=== PATIENT | male | born 1980 | race Caucasian/White ===

== ENCOUNTER 2018-04-26 11:03 | Emergency (ER) | payer OTHER ==
[~2018-04-26] VITALS: Ht 182.9 cm; Wt 88.9 kg
[2018-04-26 11:52] LABS: BILIRUBIN,URINE NEGATIVE (NEGATIVE); CLARITY,URINE CLEAR; COLOR,URINE YELLOW; GLUCOSE, URINE (UA) NEGATIVE (NEGATIVE); KETONES,URINE 1+ (NEGATIVE); LEUKOCYTE ESTERASE ,URINE 1+ (NEGATIVE); NITRITE,URINE NEGATIVE (NEGATIVE); PH,URINE 6 (5-9); PROTEIN,URINE 2+ (NEGATIVE); UROBILINOGEN,URINE 1 MG/DL (NORMAL)
[2018-04-26 11:59] LABS: BACTERIA,URINE NEGATIVE /HPF; SQUAMOUS EPITHELIAL CELL,UR 0-2 /HPF
[2018-04-26] MEDS ORDERED: HYDR-4226 PO (12:10)
--- NOTE | 2018-04-26 12:10 | ED Back Pain ---
General Chief Complaint: -Male Stated Complaint: LOWER BACK PAIN/POSS KIDNEY STONES Nursing Triage Note: Patient states he has frequent UTIs and has had bilat flank pain and chills for about 4 days. He is concerned about a possible stone. Nursing Sepsis Screen: No Definite Risk Source of Information: Patient Exam Limitations: No Limitations History of Present Illness Date Seen by Provider: Apr 26, 2018 Time Seen by Provider: 12:05 Initial Comments To ER with reports of suspected urinary tract infection. He has some chronic issues with urinary symptoms including frequency. He has bilateral paraspinous back pain from the low back to the upper back. This is typical of when he gets a urinary tract infection. He denies nausea vomiting fevers or chills. Location: Lumbar Spine Timing/Duration: 2-3 Days Severity: Moderate Pain/Injury Location: Back Radiation: Other Method of Injury: Unknown Associated Symptoms: No fever, No numbness in legs/feet, No tingling in legs/ feet, No sensory/motor loss; lower back pain; No loss of bladder control, No loss of bowel control Allergies and Home Medications Allergies Coded Allergies: No Known Allergies (Verified Allergy, Unknown, 12/10/05) Home Medications Hydrocodone/Acetaminophen 1 Each Tablet, 1 EACH PO Q6H PRN for PAIN-MODERATE Prescribed by: EZEQUIEL SANTIZO on 04/26/18 1210 Sulfamethoxazole/Trimethoprim 1 Each Tablet, 1 EACH PO BID Prescribed by: EZEQUIEL SANTIZO on 04/26/18 1440 Patient Home Medication List Home Medication List Reviewed: Yes Review of Systems Constitutional: see HPI EENTM: see HPI Respiratory: no symptoms reported Cardiovascular: no symptoms reported Genitourinary: no symptoms reported Musculoskeletal: no symptoms reported, see HPI, back pain Skin: no symptoms reported Psychiatric/Neurological: No Symptoms Reported Past Fjgjjsq-Xyjwok-Aqvrhn Hx Patient Social History Recent Foreign Travel: No Contact w/Someone Who Travel: No Recent Infectious Disease Expo: No Past Medical History Reproductive Disorders: No Physical Exam Vital Signs Vital Signs - First Documented 04/26/18 11:40 Temp 97.9 Pulse 113 Resp 20 B/P (MAP) 156/110 (125) Pulse Ox 97 Capillary Refill : Less Than 3 Seconds Height, Weight, BMI Height: 6'0" Weight: 196lbs. 0oz. 88.835035ds; BMI Method:Stated General Appearance: No Apparent Distress, WD/WN HEENT: PERRL/EOMI Respiratory: No Accessory Muscle Use, No Respiratory Distress Gastrointestinal: Normal Bowel Sounds, Non Tender, Soft Neurologic/Psychiatric: Alert, Oriented x3 Skin: Normal Color, Warm/Dry Progress/Results/Core Measures Results/Orders Lab Results Laboratory Tests Test 04/26/18 11:46 04/26/18 12:15 Range/Units Urine Color YELLOW Urine Clarity CLEAR Urine pH 6 5-9 Urine Specific [place] 1.015 L 1.016-1.022 Urine Protein 2+ H NEGATIVE Urine Glucose (UA) NEGATIVE NEGATIVE Urine Ketones 1+ H NEGATIVE Urine Nitrite NEGATIVE NEGATIVE Urine Bilirubin NEGATIVE NEGATIVE Urine Urobilinogen 1 NORMAL MG/DL Urine Leukocyte Esterase 1+ H NEGATIVE Urine RBC (Auto) NEGATIVE NEGATIVE Urine RBC NONE /HPF Urine WBC 2-5 /HPF Urine Squamous Epithelial Cells 0-2 /HPF Urine Crystals NONE /LPF Urine Bacteria NEGATIVE /HPF Urine Casts NONE /LPF Urine Mucus NEGATIVE /LPF Urine Culture Indicated NO White Blood Count 14.0 H 4.3-11.0 10^3/uL Red Blood Count 5.38 4.35-5.85 10^6/uL Hemoglobin 15.5 13.3-17.7 G/DL Hematocrit 44 40-54 % Mean Corpuscular Volume 82 80-99 FL Mean Corpuscular Hemoglobin 29 25-34 PG Mean Corpuscular Hemoglobin Concent 35 32-36 G/DL Red Cell Distribution Width 12.9 10.0-14.5 % Platelet Count 270 130-400 10^3/uL Mean Platelet Volume 9.6 7.4-10.4 FL Neutrophils (%) (Auto) 82 H 42-75 % Lymphocytes (%) (Auto) 10 L 12-44 % Monocytes (%) (Auto) 8 0-12 % Eosinophils (%) (Auto) 0 0-10 % Basophils (%) (Auto) 0 0-10 % Neutrophils # (Auto) 11.4 H 1.8-7.8 X 10^3 Lymphocytes # (Auto) 1.4 1.0-4.0 X 10^3 Monocytes # (Auto) 1.1 H 0.0-1.0 X 10^3 Eosinophils # (Auto) 0.0 0.0-0.3 10^3/uL Basophils # (Auto) 0.0 0.0-0.1 10^3/uL Sodium Level 138 135-145 MMOL/L Potassium Level 4.4 3.6-5.0 MMOL/L Chloride Level 101 98-107 MMOL/L Carbon Dioxide Level 25 21-32 MMOL/L Anion Gap 12 5-14 MMOL/L Blood Urea Nitrogen 15 7-18 MG/DL Creatinine 1.35 H 0.60-1.30 MG/DL Estimat Glomerular Filtration Rate 59 BUN/Creatinine Ratio 11 Glucose Level 104 70-105 MG/DL Calcium Level 10.0 8.5-10.1 MG/DL Corrected Calcium 8.5-10.1 MG/DL Total Bilirubin 3.4 H 0.1-1.0 MG/DL Aspartate Amino Transf (AST/SGOT) 11 5-34 U/L Alanine Aminotransferase (ALT/SGPT) 14 0-55 U/L Alkaline Phosphatase 90 40-136 U/L Total Protein 7.9 6.4-8.2 GM/DL Albumin 4.8 H 3.2-4.5 GM/DL My Orders Orders - EZEQUIEL SANTIZO APRN Ua Culture If Indicated (04/26/18 11:13) Cbc With Automated Diff (04/26/18 12:02) Comprehensive Metabolic Panel (04/26/18 12:02) Iv Heplock-Insert (Order) (04/26/18 12:02) Ketorolac Injection (Toradol Injection) (04/26/18 12:15) Chest Pa/Lat (2 View) (04/26/18 12:31) Ct Abd/Pelv W (Appendicitis) (04/26/18 12:31) Ns Iv 1000 Ml (Sodium Chloride 0.9%) (04/26/18 12:45) Iohexol Injection (Omnipaque 350 Mg/Ml 1 (04/26/18 14:00) Contrast Received (Contrast Received) (04/26/18 14:00) Ns (Ivpb) (Sodium Chloride 0.9% Ivpb Bag (04/26/18 14:00) Medications Given in ED Current Medications Medications Dose Ordered Sig/Blair Route Start Time Stop Time Status Last Admin Dose Admin Ketorolac Tromethamine 15 mg ONCE ONCE IVP 04/26/18 12:15 04/26/18 12:16 DC 04/26/18 12:17 15 MG Vital Signs/I&O 04/26/18 11:40 Temp 97.9 Pulse 113 Resp 20 B/P (MAP) 156/110 (125) Pulse Ox 97 Blood Pressure Mean: 125 Departure Communication (Admissions) Potential for a prostatitis given the leukocytosis, urinary complaints. I will treat with Bactrim Impression Primary Impression: Back pain Qualified Codes: M54.9 - Dorsalgia, unspecified Additional Impression: Prostatitis Qualified Codes: N41.9 - Inflammatory disease of prostate, unspecified Disposition: 01 HOME, SELF-CARE Condition: Stable Departure-Patient Inst. Decision time for Depature: 12:09 Referrals: NO,LOCAL PHYSICIAN (PCP/Family) Primary Care Physician Patient Instructions: Low Back Pain (DC) Add. Discharge Instructions: 1. Your urinalysis did not show infection however I did order a culture which will take about 48 hours to results. If this indicates infection will call you with an antibiotic. Scripts Sulfamethoxazole/Trimethoprim (Bactrim Ds Tablet) 1 Each Tablet 1 EACH PO BID, #20 TAB . Prov: EZEQUIEL SANTIZO APRN 04/26/18 Hydrocodone/Acetaminophen ([place] 5-325 Tablet) 1 Each Tablet 1 EACH PO Q6H PRN for PAIN-MODERATE MDD 10, #10 TAB Prov: EZEQUIEL SANTIZO APRN 04/26/18 Work/School Note: Work Release Form Date Seen in the Emergency Department: Apr 26, 2018 Return to Work: Apr 27, 2018 EZEQUIEL SANTIZO APRN Apr 26, 2018 12:10
[2018-04-26] MEDS ORDERED: KETOROLAC 30 MG/ML VIAL IVP ONE (12:15)
[2018-04-26 12:27] LABS: BASOPHILS % (AUTO) 0 % (0-10); EOSINOPHILS % (AUTO) 0 % (0-10); HEMATOCRIT 44 % (40-54); HEMOGLOBIN 15.5 G/DL (13.3-17.7); LYMPHOCYTES # (AUTO) 1.4 X 10^3 (1.0-4.0); LYMPHOCYTES % (AUTO) 10 % (12-44); MEAN CORPUSCULAR HEMOGLOBIN 29 PG (25-34); MEAN CORPUSCULAR HGB CONC 35 G/DL (32-36); MEAN CORPUSCULAR VOLUME 82 FL (80-99); MEAN PLATELET VOLUME 9.6 FL (7.4-10.4); MONOCYTES # (AUTO) 1.1 X 10^3 (0.0-1.0); MONOCYTES % (AUTO) 8 % (0-12); NEUTROPHILS # (AUTO) 11.4 X 10^3 (1.8-7.8); NEUTROPHILS % (AUTO) 82 % (42-75); PLATELET COUNT 270 10^3/uL (130-400); RED BLOOD COUNT 5.38 10^6/uL (4.35-5.85); RED CELL DISTRIBUTION WIDTH 12.9 % (10.0-14.5)
[2018-04-26] MEDS ORDERED: NS IV 1000 ML 1,000 ML IV SCH (12:45)
[2018-04-26 12:46] LABS: ALANINE AMINOTRANSFERASE 14 U/L (0-55); ALBUMIN 4.8 GM/DL (3.2-4.5); ALKALINE PHOSPHATASE 90 U/L (40-136); BILIRUBIN,TOTAL 3.4 MG/DL (0.1-1.0); BUN/CREATININE RATIO 11; CARBON DIOXIDE 25 MMOL/L (21-32); CHLORIDE 101 MMOL/L (98-107); CREATININE SERUM 1.35 MG/DL (0.60-1.30); GFR ESTIMATED 59; GLUCOSE 104 MG/DL (70-105); POTASSIUM 4.4 MMOL/L (3.6-5.0); SODIUM 138 MMOL/L (135-145); TOTAL PROTEIN 7.9 GM/DL (6.4-8.2)
[2018-04-26] MEDS ORDERED: RECEIVED CONTRAST (Hold Metformin) IV SCH (14:00)
[2018-04-26] MEDS ORDERED: NS 100 ML (IVPB) BAG IV ONE (14:00)
[2018-04-26] MEDS ORDERED: IOHEXOL 350 MG/ML 100 ML (OMNIPAQUE 350) VIAL IV ONE (14:00)
--- NOTE | 2018-04-26 14:23 | Diagnostic Imaging Report ---
INDICATION: Bilateral flank pain. Fever and chills for four days. EXAMINATION: PA and lateral views of the chest. FINDINGS: The heart size and vascularity are normal. Lungs are clear. There is no effusion. There is no acute bony abnormality. IMPRESSION: No acute abnormality is seen. Dictated by: Dictated on workstation # [id number]
--- NOTE | 2018-04-26 14:31 | Diagnostic Imaging Report ---
PROCEDURE: CT abdomen and pelvis with contrast, rule out appendicitis. TECHNIQUE: Multiple contiguous axial images were obtained through the abdomen and pelvis after the administration of intravenous contrast. DATE: April 26, 2018. COMPARISON: None. INDICATION: 38-year-old male, bilateral flank pain and chills. FINDINGS: There is mild atelectasis in the right lower lobe and left lower lobe. The heart is not enlarged. There is no identified pericardial effusion. The liver is normal in size and contour. There is no identified liver lesion. The main, right, and left portal veins are patent. The gallbladder is unremarkable. There is no intrahepatic or extrahepatic bile duct dilation. The main pancreatic duct is not abnormally dilated. Unremarkable appearance of the pancreatic parenchyma. The spleen is not enlarged. Small splenic calcifications may relate to sequela of prior granulomatous disease. The adrenal glands are unremarkable. Unremarkable appearance of the renal parenchyma. Urinary collecting systems are not distended. There is no identified renal or ureteral stone. The urinary bladder is unremarkable in appearance. There is symmetric mild to moderate prominence of the seminal vesicles without adjacent inflammatory stranding. The intestinal tract is nondistended. The appendix is best seen on axial image 82 and adjacent sequential images. There is no evidence of acute appendicitis. There is no free intraperitoneal air. There is no drainable fluid collection. There is no free pelvic fluid. There is no identified abnormally enlarged lymph node in the abdomen or pelvis which meets CT size criteria for adenopathy. There is transitional lumbosacral anatomy. There is no identified acute bony abnormality. IMPRESSION: CT ABDOMEN AND PELVIS. 1. No identified acute abnormality within the abdomen or pelvis. Dictated by: Dictated on workstation # [id number]
[2018-04-26] MEDS ORDERED: SULF1TAB35 PO ×2 (14:40→14:43)
[2018-04-26 14:51] VITALS: BP 156/110
== END 2018-04-26 14:55 | disposition home or self-care (01) ==
LOC: EDUNIT# 11:03 → ER 11:04
DX: N41.9 Inflammatory disease of prostate, unspecified (principal); M54.5 Low back pain
CPT/HCPCS: 36415; 71046; 74177; 80053; 81000; 85025

== ENCOUNTER 2022-06-25 22:13 | Emergency (ER) | payer SELFPAY ==
[~2022-06-25] VITALS: Ht 180.3 cm; Wt 101.5 kg
[~2022-06-25 22:13] MED LIST: HYDR-4226 PO; SULF1TAB38 PO
--- NOTE | 2022-06-25 22:18 | ED EENT ---
History of Present Illness General Stated Complaint: JAW PAIN/SWELLING History of Present Illness Date Seen by Provider: Jun 25, 2022 Time Seen by Provider: 22:18 Initial Comments 42-year-old male is here with complaints of right-sided molar tooth pain which started after patient's tongue was playing with him and head butted him, causing his tooth to crack and chip away. Patient has 10/10 pain. Denies active bleeding. Patient is able to open his mouth all the way without any difficulty Allergies and Home Medications Allergies Coded Allergies: No Known Allergies (Verified Allergy, Unknown, 12/10/05) Patient Home Medication List Home Medication List Reviewed: Yes Hydrocodone/Acetaminophen (Hydrocodone/Acetaminophen 5 MG/325 MG TAB) 1 Each Tablet, 1 EACH PO Q6H PRN for PAIN-MODERATE Prescribed by: EZEQUIEL SANTIZO on 04/26/18 1210 Sulfamethoxazole/Trimethoprim (Bactrim Ds Tablet) 1 Each Tablet, 1 EACH PO BID Prescribed by: EZEQUIEL SANTIZO on 04/26/18 1443 Review of Systems Review of Systems Constitutional: no symptoms reported Eyes: No Symptoms Reported Ears: No Symptoms Reported Nose: no symptoms reported Mouth: other (Fractured tooth and dental caries) Throat: no symptoms reported Respiratory: no symptoms reported Cardiovascular: no symptoms reported Gastrointestinal: no symptoms reported Musculoskeletal: no symptoms reported Skin: no symptoms reported Neurological: No Symptoms Reported Hematologic/Lymphatic: No Symptoms Reported Immunological/Allergic: no symptoms reported Past Yyxlksr-Uvzotb-Glolbf Hx Past Medical History Reproductive Disorders: No Physical Exam Height, Weight, BMI Height: 6'0" Weight: 196lbs. 0oz. 88.104111jw; BMI Method:Stated General Appearance: WD/WN, mild distress Mouth/Throat: dental tenderness (Right lower second molar tooth is fractured in half with half the tooth missing. Patient also has overall poor dental hygiene), other (No swelling to jaw. Patient is able to open his mouth all the way without any difficulty. No TMJ tenderness) Neck: non-tender, full range of motion Respiratory: lungs clear Neurologic/Psychiatric: alert, oriented x 3 Skin: normal color Progress/Results/Core Measures Results/Orders My Orders Orders - HILARIA HDEZ MD Rx-Oxycodone/[place] 5-325 Mg (Rx-Percocet (06/25/22 22:45) Ketorolac Injection (Toradol Injection) (06/25/22 22:45) Amoxicillin/Clavulanate Tablet (Augmenti (06/25/22 22:31) Progress Progress Note : Progress Note 1. DENTAL FRACTURE: -Augmentin 875 twice daily for 7 days with first tab given in the ER -Toradol IM injection stat in ER -Follow-up with dental [facility] -Oral hygiene advised Departure Impression Primary Impression: Fractured tooth due to trauma without complication Qualified Codes: S02.5XXB - Fracture of tooth (traumatic), initial encounter for open fracture Disposition: HOME, SELF-CARE Condition: Stable Departure-Patient Inst. Referrals: NO,LOCAL PHYSICIAN (PCP/Family) Primary Care Physician Patient Instructions: Fractured Tooth (DC), Mouth and Dental Injuries in Adults, Dental Pain (DC) Add. Discharge Instructions: -Augmentin 875 twice daily for 7 days -Follow-up with dental clinic [facility] -Oral hygiene advised Scripts Amoxicillin/Potassium Clav (Amox Tr-K Clv 875-125 mg Tab) 875 Mg-125 Mg Tablet 1 EACH PO BID for 7 Days, #14 TAB Prov: HILARIA HDEZ MD 06/25/22 HILARIA HDEZ MD Jun 25, 2022 22:18
[2022-06-25 22:26] VITALS: BP 136/93
[2022-06-25] MEDS ORDERED: AUGMENTIN 875 MG TAB (AMOXICILLIN/CLAVULANATE) PO STA (22:31)
[2022-06-25] MEDS ORDERED: AMOX1TAB12 PO (22:41)
[2022-06-25] MEDS ORDERED: RX-OXYCODONE/APAP 5-325 MG #4 TAB PK PO PRN (22:45)
[2022-06-25] MEDS ORDERED: KETOROLAC 30 MG/ML VIAL IM ONE (22:45)
== END 2022-06-25 22:51 | disposition home or self-care (01) ==
LOC: EDUNIT# 22:13 → ER FS 22:15
DX: S02.5XXA Fracture of tooth (traumatic), initial encounter for closed fracture (principal); Z28.310 Unvaccinated for COVID-19; X58.XXXA Exposure to other specified factors, initial encounter
CPT/HCPCS: 99284